=== PATIENT | male | born 1965 | race Caucasian/White ===

== ENCOUNTER 2023-03-06 11:12 | Outpatient (REF) | payer MEDICARE, MEDICAID, SELFPAY ==
[2023-03-06 13:10] LABS: MANUAL DIFF FLAG NO
[2023-03-06 13:34] LABS: Basophils Absolute Auto 0.1 X10*3/uL (0.0-0.2); Basophils Percent Auto 0.7 % (0-2); Eosinophils Absolute Auto 0.2 X10*3/uL (0.0-0.4); Eosinophils Percent Auto 1.8 % (0-4); Hematocrit 44.2 % (42.0-52.0); Hemoglobin 14.7 g/dl (14.0-18.0); Imm Gran Abs Auto 0.04 X10*3/uL (0.00-0.03); Imm Gran Pct Auto 0.4 % (0.0-0.4); Lymphocytes Absolute Auto 3.5 X10*3/uL (1.2-4.9); Lymphocytes Percent Auto 35.1 % (20-40); Mean Corpuscular HGB Conc 33.3 g/dl (31.0-36.0); Mean Corpuscular Hemoglobin 31.2 pg (27.0-33.0); Mean Corpuscular Volume 93.8 fL (80.0-98.0); Mean Platelet Volume 10.2 fL (9.4-12.4); Monocytes Absolute Auto 0.8 X10*3/uL (0.1-1.2); Monocytes Percent Auto 8.5 % (2-11); Neutrophils Absolute Auto 5.3 x10*3/uL (2.0-8.3); Neutrophils Percent Auto 53.5 % (45-73); Platelet Count 313 X10*3/uL (160-400); Red Blood Count 4.71 X10*6/uL (4.60-5.80); Red Cell Distribution Width 12.2 % (11.0-16.0); White Blood Count 9.9 X10*3/uL (4.8-10.8)
[2023-03-06 13:42] LABS: Estimated Average Glucose 103 mg/dL; Hemoglobin A1c % 5.2 % (<6.0)
[2023-03-06 14:04] LABS: Alanine Aminotransferase 20 U/L (0-40); Albumin Level 4.2 g/dL (3.5-5.0); Alkaline Phosphatase 83 U/L (39-117); Anion Gap 12 (12-20); Aspartate Amino Transferase 20 U/L (5-37); Bilirubin Direct 0.2 mg/dL (0.0-0.5); Bilirubin Total 0.5 mg/dL (0.0-1.0); Blood Urea Nitrogen 16 mg/dL (9-16); Carbon Dioxide 31 mmol/L (22-29); Chloride 100 mmol/L (96-108); Cholesterol 211 mg/dL (<200); Estimated Glomerular Filt Rate > 60; Glucose Random 103 mg/dL (60-115); HDL Cholesterol 42 mg/dL (>40); LDL Cholesterol Calculated 147 mg/dL (<100); Potassium 4.5 mmol/L (3.3-5.1); Sodium 138 mmol/L (135-145); Total Protein 7.2 g/dL (6.5-8.0); Triglycerides 113 mg/dL (<150)
[2023-03-06 14:21] LABS: TSH reflex Free T4 0.78 uIU/mL (0.32-4.0)
[2023-03-07 03:50] LABS: HIV AB/AG Nonreactive (Nonreactive); HIV Num 1 0.06 S/CO (0.00-0.99)
[2023-03-07 03:52] LABS: ~Hepatitis C Antibody Nonreactive (Nonreactive)
== END 2023-03-06 11:13 | disposition home or self-care (01) ==
LOC: HO.HHCL 11:12
PROVIDERS: Visit Provider Internal Medicine
DX: Z00.00 Encounter for general adult medical examination without abnormal findings (principal); Z11.4 Encounter for screening for human immunodeficiency virus [HIV]; I10 Essential (primary) hypertension; Z79.899 Other long term (current) drug therapy
CPT/HCPCS: 36415; 80048; 80061; 80076; 83036; 84443; 85025; 86803; 87389

== ENCOUNTER 2023-04-13 10:27 | Outpatient (AMB) | payer MEDICARE, MEDICAID, SELFPAY ==
--- NOTE | 2023-04-13 10:29 | A.OFFVIS_ITS ---
Intake Vital Signs 04/13/23 10:38 Height 5 ft 10 in Weight 202 lb 2 oz BMI 29.0 BP 154/93 H Blood Pressure Location Lt brachial Position Sitting Pulse 66 Intake Visit Reasons: ventral hernia Intake Note: Patient is seen in office for evaluation and treatment of a ventral hernia. 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 He has noted the lump for several years and is gradually increasing in size. He notes it mainly when getting out of bed or when having intercourse with his . He does not note the lump well on the standing position. He has heartburn but feels this may be related to reflux. He denies nausea, vomiting, diarrhea or constipation. He denies a previous history of abdominal surgeries. [facility] Surgical History History of arthroscopic knee surgery History of hand surgery History of neck surgery Family History Father Colon cancer Brother Colon cancer Social History Alcohol intake: never Patient Tobacco Use Status: Never used Tobacco Review of Systems Const All systems reviewed & are unremarkable except as noted in HPI and below GI Reports as per HPI Physical Exam Const General: no acute distress Nutritional Appearance: well nourished Orientation/consciousness: patient oriented x3 Limitations: no limitations Resp Effort & Inspection: normal respiratory effort, no audible wheezes, no cough and no respiratory distress GI Other: Patient examined in the standing position with Valsalva maneuvers. No palpable ventral hernias identified. Patient was then placed in a supine position and made to perform a sit-up. Diastasis recti was identified. This was reduced when recruiting the oblique muscles at the same time. Again no ventral hernia identified. Palpation (GI): Soft to palpation, nontender, no guarding and not rigid Skin General skin exam: no rashes or lesions noted Neuro General: patient oriented x3 Extrem General: Yes no clubbing, cyanosis or edema Assessment & Plan Assessment & Plan (1) Diastasis recti: Code(s): M62.08 - Separation of muscle (nontraumatic), other site Plan 57-year-old male patient presenting for evaluation of a ventral hernia. On examination the patient does have a large diastasis recti but no hernia was identified within this protruding portion. No surgical intervention is required for the diastasis recti. I recommended performing core exercises to strengthen the oblique muscles which should help to reduce the diastasis. He should follow up as needed. Coding Level of Care Code New Pt Level 4 (57045) Diagnoses Diastasis recti M62.08
[2023-04-13 10:38] VITALS: BP 154/93; PULSE 66; BMI 29.0
== END 2023-04-13 10:41 | disposition home or self-care (01) ==
PROVIDERS: PCP Internal Medicine; Referring Provider Internal Medicine; Visit Provider Surgery
DX: M62.08 Separation of muscle (nontraumatic), other site (principal)
CPT/HCPCS: 99203

== ENCOUNTER → 2023-04-13 10:27 | Outpatient (BNVA) | payer MEDICARE, SELFPAY | PROVIDERS: PCP Internal Medicine; Referring Provider Internal Medicine; Visit Provider Surgery ==

== ENCOUNTER 2024-09-17 12:59 | Outpatient (REF) | payer MEDICARE, MEDICAID, SELFPAY ==
--- NOTE | ~2024-09-17 | XR_ITS ---
EXAMINATION: XR CHEST CLINICAL INFORMATION: cough x one week with decreased BS COMPARISON: None available. TECHNIQUE: 2 views of the chest were obtained. FINDINGS: The lungs are well-expanded and clear acute process. The heart size and pulmonary vascularity is normal. There are old healed fractures left posterior fifth, sixth and seventh ribs. The lower cervical spine fusion with hardware. XR/XR chest 2V IMPRESSION: Unremarkable chest examination. Electronically signed by: Jose Antonio Garcia MD 09/17/2024 01:18 PM EST
--- OUTSIDE RECORDS SUMMARY | 2024-09-17 15:21 | XMS_ITS ---
Author Organization [facility] Address [address] [place] [phone] Care Team Providers Care Mortuary Beautician Name Role Phone Ebenezer Lawrence, Marcy Primary Care Provider Kodi Galan Jr [phone] REASON FOR VISIT abnormal findings in stool Encounters Encounter Location Date Provider Diagnosis [facility] [address] [place] [phone] 09/11/2023 Kodi Smith Jr Plan Of Treatment No Information Progress Notes * RHIANNON CHAVE[birth year]DOB:[birth year] (59 yo M)Acc No.[id number]:09/11/2023 COLON WITH MAC Patient:?RHIANNON CHAVEZ Provider:?Kodi Smith MD :1965???Age:58 Y???Sex:Male Ceasar e:09/11/2023 Address:[address] [place] [address], [place], [place] Pcp:Marcy Sol M.D. Subjective: * Chief Complaints: * ???1. Abnormal findings in s tool. * Medical History:? Objective: * Vitals:? Assessment: Plan: * Treatment: * * The named appointment provid er may or may not be the originator of this progress note, and it is not deemed complete until electronically signed by the appointment provider. Sign off status: Pending * Provider:?Kodi Smith MD Date:?0 09/11/2023 Generated for Scott moreira/Almas/eTransmitting on:?09/17/2024 03:21 PM EST
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
--- OUTSIDE RECORDS SUMMARY | 2024-09-17 15:21 | XMS_ITS ---
Author Organization [facility] Address [address] [place] [phone] Care Team Providers Care Rubber Tile Floor Layer Name Role Phone Marcy Sol M.D. Primary Care Provider Kodi Galan Jr [phone] REASON FOR VISIT [facility] is not active Encounters Encounter Location Date Provider Diagnosis [facility] [address] [place] [address] 09/10/2023 Kodi Smith Jr Plan Of Treatment No Information Progress Notes * RHIANNON CHAVEZDOB:[birth year] (58 yo M)Acc No.[id number]:09/10/2023 Patient:?RHIANNON CHAVEZ :1965???Age:58 Y???Sex:Male Address:[address], [place], [address] * true * Date:? Generated for Tahiri lillie/Almas/eTransmitting on:?09/17/2024 03:21 PM EST
--- OUTSIDE RECORDS SUMMARY | 2024-09-17 15:22 | XMS_ITS | Encounter Summary ---
Author Organization [employer] Address [address] [facility] 7t [place] [address] Care Team Providers Care Barrel Charrer Helper Name Role Phone Marcy Pat MD Primary Care Provide r Reason for Visit * Reason Onset Date Comments Results 09/17/2024 Encounter Details Date Type Department Care Team ([facility] st Contact Info) Description 09/17/2024 Telephone [facility] [address] [place], [place] [phone] Carlota Raza DO [address] [place], [place] [phone] Results Social History Tobacco Use Types Packs/Day Years Used Date Smoking Tobacco: Every Day Cigarettes Passive Smoke Exposure: Current Smokeless Tobacco: Never Depression Answer Date Recorded Patient Health Questionnaire-9 Score 3 03/06/2023 Housing Stability Answer Date Recorded What is your housing situation today? I have alex cabrera 05/18/[address] you li ve. Do you have problems with any of the following? None of the above 05/18/2023 Food Insecurity Answer Date Recorded Within the past 12 months, y ou worried that your food would run out before you got money to buy more: Never True 05/18/2023 Within the past 12 months,th e food you bought just didn't last and you didn't have enough money to get more: Never True 09/2022 Transportation Answer Date Recorded In the past 12 months, has l ack of transportation kept you from medical appts, meetings, work or from getting things needed for daily living? No 05/18/2023 Utilities Answer Date Recorded In the past 12 months, has t he electric, gas, oil or water company threatened to shut off services in your home? No 05/18/2023 Depression Answer Date Recorded Patient Health Questionnaire-2 Score 1 03/06/2023 Sex and Gender Information Value Date Recorded Sex Assigned at Male 05/15/2022 10:22 AM EDT Legal Sex Male 10:22 AM EDT Gender Identity Choose not to disclose 10:22 AM EDT Sexual Orientation Choose not to disclose 2021 10:22 AM EDT documented as of this encounter Miscellaneous Notes * Telephone Encounter - Tita Schreiber RN - 09/17/2024 2:55 PM EST TC placed to patient [phone] inform of below message. Patient verbalized understanding and did not have any further questions/concerns. Patient to f/u PRN. * Telephone Encounter - Carlota Raza DO - 09/17/2024 2:32 PM EST Please advise pt that his CXR showed clear lungs with no evidence of PNA. Thank you. documented in this encounter Plan of Treatment Upcoming Encounters Date Type Department Care Team (Late st Contact Info) Description 11/17/2024 1:30 PM EDT Office Visit [facility] [address] [place] [address] Marcy Pat MD [address] [place] [address] documented as of this encounter Visit Diagnoses Not on filedocumented in this encounter Additional Health Concerns Assessment Noted Time PHQ-9 Depression Total Score: 3 03/06/20 23 10:37 AM EDT documented as of this encounter Care Teams Barrel Charrer Helper Relationship Specialty Start Date End Date Marcy Pat MD [address] [place] [phone] PCP - General Internal Medicine 03/06/23 documented as of this encounter
--- OUTSIDE RECORDS SUMMARY | 2024-09-17 15:22 | XMS_ITS | Encounter Summary ---
Author Organization [employer] Address [address] [facility] 7t [place] [address] Care Team Providers Care Pharmacy Scheduler Name Role Phone Marcy Pat MD Primary Care Provide r Encounter Details Date Type Department Care Team (Late st Contact Info) Description 09/17/2024 11:30 AM EST Office Visit [facility] [address] [place] [address] Carlota Raza DO [address] [place], [place] [phone] COPD with acute exacerbation (CMS/HCC) (Primary Dx); Tobacco dependence; Chronic bronchitis, unspecified chronic bronchitis type (CMS/HCC) Social History Tobacco Use Types Packs/Day Years Used Date Smoking Tobacco: Every Day Cigarettes Passive Smoke Exposure: Current Smokeless Tobacco: Never Tobacco Cessation:Ready to Q uit: Not Asked; Counseling Given: Not Answered Depression Answer Date Recorded Patient Health Questionnaire-9 [...] AM EDT documented as of this encounter Last Filed Vital Signs Vital Sign Reading Time Taken Comments Blood Pressure 118/70 09/17/2024 12:36 PM EST Pulse 70 09/17/2024 12:36 PM EST Temperature 36.2 ??C (97.1 ??F) 09/17/2024 12:[address] Respiratory Rate 21 09/17/2024 12:36 PM EST Oxygen Saturation 94% 09/17/2024 12:36 PM EST Inhaled Oxygen Concentration - - Weight 88.9 kg (196 lb) 09/17/2024 12:36 PM EST Height 177.8 cm (5' 10 ) 09/17/2024 12:36 PM EST Body Mass Index 28.12 09/17/2024 12:36 PM EST documented in this encounter Plan of Treatment Upcoming Encounters Date Type Department Care Team (Late st Contact Info) Description 11/17/2024 1:30 PM EDT Office Visit [facility] [address] [place] [address] Marcy Pat MD [address] [place] [address] documented as of this encounter Procedures Procedure Name Priority Date/Time Associated Diagnosis Comments XR CHEST 2 VIEWS STAT 09/17/2024 1:00 PM EST COPD with acute exacerbation (CMS/HCC) POCT INFLUENZA A (ID NOW RAPID MOLECULAR) Routine 09/17/2024 12:44 PM EST COPD with acute exacerbation (CMS/HCC) POCT INFLUENZA B (ID NOW RAPID MOLECULAR) Routine 09/17/2024 12:43 PM EST COPD with acute exacerbation (CMS/HCC) POC NICHOLS ID NOW STREP A Routine 09/17/2024 12:43 PM EST COPD with acute exacerbation (CMS/HCC) POCT RAPID COVID ANTIGEN Routine 09/17/2024 12:42 PM EST COPD with acute exacerbation (CMS/HCC) documented in this encounter Results * XR Chest 2 Views (09/17/2024 1:00 PM EST) Anatomical Region Laterality Modality Chest Radiographic Bethanie ging 09/17/2024 1:00 PM EST Narrative 09/17/2024 1:21 PM EST ?[facility] ?[address] ?[place] [address] ?XRay Report ? Signed ? Patient: Claire,Yan E ?MR#: [id number] ?? [id number] ? : 1965 ?Acct:[id number] ? Age/Sex: 59 / M ?ADM Date: 09/17/24 ? Loc: HO.HHCX ? Attending Dr: Carlota Raza DO ? Ordering Physician: Carlota Raza DO ?? Date of Service: 09/17/24 ?? Procedure(s): XR chest 2V ?? Accession Number(s): [id number] ? cc: Carlota Raza DO ? EXAMINATION: ?? XR CHEST ? CLINICAL INFORMATION: ?? cough x one week with decreased BS ? COMPARISON: ?? None available. ? TECHNIQUE: ?? 2 views of the chest were obtained. ? FINDINGS: ?? The lungs are well-expanded and clear acute process. The heart size and ?? pulmonary vascularity is normal. There are old healed fractures left ?? posterior fifth, sixth and seventh ribs. The lower cervical spine ?? fusion with hardware. ? XR/XR chest 2V ?? IMPRESSION: ?? Unremarkable chest examination. ? Electronically signed by: ??Jose Antonio Garcia MD ??09/17/2024 01:18 PM EST RP ? Dictated By: ?Radha,Jose Antonio S MD ? Signed By: ?<Electronically signed by Jose Antonio Garcia MD in OV> ?09/17/24 1318 ? DD/ 1300 ? TD/TT: 09/17/24 1310 ? [place] Inspector: MSM ? Procedure Note Stevenson, Image - 09/17/2024 [facility] [address] [place] [address] XRay Report Signed Patient: Yan Rangel EMR#: [id number] : 1965Acct:[id number] Age/Sex: 59 / MADM Date: 09/17/24 Loc: HO.HHCX Attending Dr: Carlota Raza DO Ordering Physician: Carlota Raza DO Date of Service: 09/17/24 Procedure(s): XR chest 2V Accession Number(s): [id number] cc: Carlota Raza DO EXAMINATION: XR CHEST CLINICAL INFORMATION: cough x one week with decreased BS COMPARISON: None available. TECHNIQUE: 2 views of the chest were obtained. FINDINGS: The lungs are well-expanded and clear acute process. The heart size and pulmonary vascularity is normal. There are old healed fractures left posterior fifth, sixth and seventh ribs. The lower cervical spine fusion with hardware. XR/XR chest 2V IMPRESSION: Unremarkable chest examination. Electronically signed by: Jose Antonio Garcia MD 09/17/2024 01:18 PM EST Dictated By: Jose Antonio Garcia MD Signed By: <Electronically signed by Jose Antonio Garcia MD in OV> 09/17/24 1318 DD/ 1300 TD/TT: 09/17/24 1310 [place] Inspector: MSM Carlota Raza DO IMG XR PROCEDURES Edited Res ult - Final * POCT Rapid Influenza A NICHOLS ID NOW (09/17/2024 12:44 PM EST) Influenza A Negative Negative, Indeterminate [facility] QC Media Lot # [id number] [facility] Lot# Expiration Date [facility] Swab 09/17/2024 12:4 4 PM EST Carlota Raza DO POINT OF CARE TEST ENTER/KYLAH T ORDERABLES Final Result Performing Organization Address [facility] Co de Phone Number [facility] [address] [place] [phone] * POCT Rapid Strep A NICHOLS ID NOW (09/17/2024 12:43 PM EST) Rapid Strep A Screen Negative Negative, None Detected QC Media Lot # [id number] Lot# Expiration Date Swab 09/17/2024 12:4 3 PM EST Carlota Raza DO POINT OF CARE TEST ENTER/KYLAH T ORDERABLES Final Result * POCT Rapid Influenza B NICHOLS ID NOW (09/17/2024 12:43 PM EST) Influenza B Negative Negative, Indeterminate [facility] QC Media Lot # [id number] [facility] Lot# Expiration Date [facility] Swab 09/17/2024 12:4 3 PM EST Carlota Raza DO POINT OF CARE TEST ENTER/KYLAH T ORDERABLES Final Result Performing Organization Address [facility] Co de Phone Number [facility] [address] [place] [phone] * POCT Rapid Covid-19 BinaxNOW (09/17/2024 12:42 PM EST) Rapid COVID Ag Negative QC Media Lot # [id number] Lot# Expiration Date 026 Swab 09/17/2024 12:4 2 PM EST Carlota Raza DO POINT OF CARE TEST ENTER/KYLAH T ORDERABLES Final Result documented in this encounter Visit Diagnoses Diagnosis COPD with acute exacerbation (CMS/HCC)- Primary Tobacco dependence Tobacco use disorder Chronic bronchitis, unspecified chronic bronchitis type (CMS/HCC) documented in this encounter Additional Health Concerns Assessment Noted Time PHQ-9 Depression Total Score: 3 03/06/20 23 10:37 AM EDT documented as of this encounter Care Teams Pharmacy Scheduler Relationship Specialty Start Date End Date Marcy Pat MD [address] [place] [phone] PCP - General Internal Medicine 03/06/23 documented as of this encounter
--- OUTSIDE RECORDS SUMMARY | 2024-09-17 15:22 | XMS_ITS | Clinical Summary ---
Author Organization [employer] Address [address] [facility] [address] [place] [address] Care Team Providers Care Environmental Engineering Aide Name Role Phone Marcy Pat MD Primary Care Provide r Allergies Active Allergy Reactions Criticality Noted Date Comments Tramadol 09/17/2024 Other Reaction(s): vomiting Medications Diclofenac Sodium 1 % gelIndications:L ateral epicondylitis of right elbow APPLY 2 grams TOPICALLY IF NEEDED IN THE MORNING AND AT BEDTIME (APPLY TWICE A DAY IF NEEDED). 100 g 1 08/01/19 24 Active lisinopril-hydro CHLOROthiazide 20-25 MG tabletIndication s:Primary hypertension TAKE 1 TABLET BY MOUTH EVERY DAY IN THE MORNING 90 tablet 3 07/30/19 25 Active atorvastatin (Lipitor) 40 MG tabletIndication s:Primary hypertension TAKE 1 TABLET BY MOUTH EVERY DAY IN THE MORNING 90 tablet 1 07/30/19 25 Active predniSONE (Deltasone) 20 MG tablet Take 3 tablets (60 mg) by mouth Once per day for 5 days. 15 tablet 09/18/19 25 2024 Active albuterol (Ventolin HFA) 108 (90 Base) MCG/ACT inhalerIndicatio ns:Chronic bronchitis, unspecified chronic bronchitis type (CMS/HCC) Inhale 2 puffs every 4 (four) hours if needed for wheezing or shortness of breath. INHALE 2 PUFFS EVERY 6 HOURS IF NEEDED FOR WHEEZING. 18 g 1 09/18/19 25 Active loratadine (Claritin) 10 MG tablet Take 1 tablet (10 mg) by mouth Once per day. 30 tablet 3 09/18/19 25 2025 Active fluticasone (Flonase) 50 MCG/ACT nasal spray Administer 2 sprays into each nostril Once per day. Shake gently. Before first use, prime pump. After use, clean tip and replace cap. 16 g 3 09/18/19 25 2025 Active benzonatate (Tessalon Perles) 100 MG capsule Take 1 capsule (100 mg) by mouth if needed in the morning, at noon, and at bedtime for cough for up to 10 days. Do not crush or chew. 30 capsule 09/18/19 25 2024 Active guaiFENesin (Mucinex) 600 MG 12 hr tablet Take 2 tablets (1,200 mg) by mouth if needed in the morning and at bedtime for congestion or cough. Do not crush, chew, or split. 30 tablet 09/18/19 25 2025 Active albuterol (Ventolin HFA) 108 (90 Base) MCG/ACT inhalerIndicatio ns:Chronic bronchitis, unspecified chronic bronchitis type (CMS/HCC) INHALE 2 PUFFS EVERY 6 HOURS IF NEEDED FOR WHEEZING. 18 g 3 10/30/19 24 2024 Discontinued(R eorder (will not trigger notification to Pharmacy)) Active Problems Problem Noted Date Diagnosed Date Uncomplicated opioid dependence 10/30/2023 Assessment & Plan (10/31/2023 2:04 PM EDT): Continue on methadone clinic, doing well Chronic bronchitis 07/02/2023 Assessment & Plan (10/31/2023 1:58 PM EDT): Smoking cessation counseling done Patient was refer to pulmonology he had insurance issue, it will be fix and he will schedule his appointment Lateral epicondylitis of right elbow 07/02/2023 Colon cancer screening 07/02/2023 Primary hypertension 03/06/2023 Assessment & Plan (10/31/2023 2:05 PM EDT): Patient did not took his medication today, advise not to miss any dose of his medication - Aerobic exercise to reduce BP. Initial goal of 30 min walk 3-5x/week. Increase as tolerated. - low-sodium diet (goal: <2g/day) and heart healthy diet such as DASH to reduce BP and prevent ASCVD. - Home BP monitoring 1-2 x day with goal of <140/90. - Seek immediate medical attention for chest pain, palpitations, SOB, syncope, or sudden changes in mental status. - Do not change or discontinue current prescriptions without first consulting health care provider Assessment & Plan (07/02/2023 4:03 PM EST): Maintenance: BMP: up to date Lipid Panel: up to date ASCVD Risk:I started him on atorvastatin 40mg daily - Aerobic exercise to reduce BP. Initial goal of 30 min walk 3-5x/week. Increase as tolerated. - low-sodium diet (goal: <2g/day) and heart healthy diet such as DASH to reduce BP and prevent ASCVD. - Home BP monitoring 1-2 x day with goal of <140/90. - Seek immediate medical attention for chest pain, palpitations, SOB, syncope, or sudden changes in mental status. - Do not change or discontinue current prescriptions without first consulting health care provider Assessment & Plan (03/06/2023 1:40 PM EDT): Maintenance: BMP: ordered Lipid Panel: ordered ASCVD Risk: Calculate pending updated labs - Aerobic exercise to reduce BP. Initial goal of 30 min walk 3-5x/week. Increase as tolerated. - low-sodium diet (goal: <2g/day) and heart healthy diet such as DASH to reduce BP and prevent ASCVD. - Home BP monitoring 1-2 x day with goal of <140/90. - Seek immediate medical attention for chest pain, palpitations, SOB, syncope, or sudden changes in mental status. - Do not change or discontinue current prescriptions without first consulting health care provider Anxiety with depression 03/06/2023 Assessment & Plan (10/31/2023 2:04 PM EDT): Patient stable continue with methadone clinic counselor Assessment & Plan (03/06/2023 1:43 PM EDT): Counseling done today Patient will follow with counselor No necessity for medications for now Health care maintenance 03/06/2023 Ventral hernia without obstruction or gangrene 0 03/06/2023 Smoker 03/06/2023 Assessment & Plan (10/31/2023 2:04 PM EDT): Patient is not ready to quit he is trying to cut down, he declines other interventions Assessment & Plan (03/06/2023 1:41 PM EDT): Patient chemical dependency counselor about quit smoking today, further conversation about this and lung cancer screening to be address on next visit Encounters Date Type Department Care Team Description 09/17/2024 11:30 AM EST Office Visit [facility] [address] [place] [phone] Carlota Raza DO COPD with acute exacerbation (CMS/HCC) (Primary Dx); Tobacco dependence; Chronic bronchitis, unspecified chronic bronchitis type (CMS/HCC) 09/17/[address] [address] Carlota Raza DO Results 09/17/2024 Travel 09/16/[address] [address] Marcy Pat MD Nurse Triage 07/29/2024 Refill [facility] [address] [place] [address] Marcy Pat MD Primary hypertension from Last 3 Months Immunizations Name Administration Dates Next Due Influenza injectable quadriv alent IIV4 with preservative 05/19/2015 Influenza injectable quadriv alent preservative free 07/02/2023 Influenza, IIV3, injectable 04/23/2014, 3 Influenza, Split (incl. theo fied surface antigen) 04/10/2012 Pneumococcal Conjugate PCV 20 10/30/2023 TD (adult), 2 Lf tetanus tox oid, preservative free, adsorbed 07/16/2003 Tdap 01/10/2017,05/19/2015,06/06/2013 Social History Tobacco Use Types Packs/Day Years [...] not to disclose 2021 10:22 AM EDT Last Filed Vital Signs Vital Sign Reading [...] Mass Index 28.12 09/17/2024 12:36 PM EST Plan of Treatment Upcoming Encounters Date Type Department Care Team (Late st Contact Info) Description 11/17/2024 1:30 PM EDT Office Visit [facility] [address] [place] [address] Marcy Pat MD [address] [place] [address] Health Maintenance Due Date Last Done Comments CT Colonography 1965 Colonoscopy 1965 FIT 1965 FOBT 1965 Sigmoidoscopy 1965 Alcohol/Substance Use Screening 1977 Hepatitis A Vaccines (1 of 2 - Risk 2-dose series) 1984 Hepatitis B Vaccines (1 of 3 - 19+ 3-dose series) 1984 Zoster Vaccines (1 of 2) 2015 Depression Screening 03/06/2024 03/06/2023, 03/06/20 23 COVID-19 Vaccine ( - season) 2024 09/25/2020, 09/02/2020 Influenza Vaccine (#1) 2024 , 05/19/2015, 04/23/2014, Additional history exists SDOH Screening 10/17/2024 10/18/2023 Tobacco Screening 09/17/2025 09/17/2024 Colorectal Cancer Screening 07/19/2026 FIT DNA/Cologuard 07/19/2026 07/19/2023 DTaP/Tdap/Td Vaccines (4 - Td or Tdap) 01/10/2027 01/10/2017, 05/19/2015, 06/06/2013, Additional history exists Lipid Panel 03/06/2028 03/06/2023 RSV Patients and Patients Aged 60 years or older (1 - 1-dose 75+ series) 2040 HIV Screening Completed 03/06/2023 Hepatitis C Screening Completed 03/06/2023 Pneumococcal Vaccine: 50+ Years Completed 10/30/2023 HIB Vaccines Aged Out No longer eligi ble based on patient's age to complete this topic HPV Vaccines Aged Out No longer eligi ble based on patient's age to complete this topic IPV Vaccines Aged Out No longer eligi ble based on patient's age to complete this topic Meningococcal Vaccine Aged Out No sheng cooper eligible based on patient's age to complete this topic RSV under 20 months Aged Out No longe r eligible based on patient's age to complete this topic Rotavirus Vaccines Aged Out No longer eligible based on patient's age to complete this topic Procedures Procedure Name Priority Date/Time Associated Diagnosis [...] PM EST COPD with acute exacerbation (CMS/HCC) LAB COLOGUARD?? COLON CANCER SCREEN Routine 07/19/2023 9:45 PM EST Colon cancer screening HEPATITIS C ANTIBODY REFLEX Routine 03/06/2023 11:20 AM EDT HIV ANTIBODY/ANTIGEN ([place] [facility]) Routine 03/06/2023 11:20 AM EDT LIPID PANEL, STANDARD Routine 03/06/2023 11:20 AM EDT Primary hypertension from Last 3 Months or Most Recently Relevant to Health Maintenance Results * XR Chest 2 Views (09/17/2024 1:00 PM EST) Anatomical Region Laterality Modality Chest Radiographic Bethanie ging 09/17/2024 1:00 PM EST Narrative 09/17/2024 1:21 PM EST ?[facility] ?[address] ?[place] [address] ?XRay Report ? Signed ? Patient: Claire,Yan E ?MR#: [id number] ?? [id number] ? : 1965 ?Acct:[id number] ? Age/Sex: 59 / M ?ADM Date: 03/05/25 ? Loc: HO.HHCX ? Attending Dr: Carlota Raza DO ? Ordering Physician: Carlota Raza DO ?? Date of Service: 09/17/24 ?? Procedure(s): XR chest 2V ?? Accession Number(s): [id number] ? cc: Carlota Raza DO ? EXAMINATION: [...] 01:18 PM EST RP ? Dictated By: ?Jose Antonio Garcia MD ? Signed By: ?<Electronically signed by Jose Antonio Garcia MD in OV> ?09/17/24 1318 ? DD/ 1300 ? TD/TT: 09/17/24 1310 ? Feeder Associate: MSM ? Procedure Note Lornestellarobertnalini, Image - 09/17/[address] [address] XRay Report Signed Patient: Yan Rangel EMR#: [id number] : 1965Acct:[id number] Age/Sex: 59 / MADM Date: 09/17/24 Loc: HO.HHCX Attending Dr: Carlota Raza DO Ordering Physician: Carlota Raza DO Date of Service: 09/17/24 Procedure(s): XR chest 2V Accession Number(s): [id number] cc: Carlota Raza DO EXAMINATION: XR CHEST [...] Antonio Garcia MD 09/17/2024 01:18 PM EST RP Dictated By: Jose Antonio Garcia MD Signed By: <Electronically signed by Jose Antonio Garcia MD in OV> 09/17/24 1318 DD/ 1300 TD/TT: 09/17/24 1310 Feeder Associate: STEVEN Carlota Raza DO IMG XR PROCEDURES Edited Res ult - Final * POCT Rapid Influenza A NICHOLS ID NOW (09/17/2024 12:44 PM EST) Influenza A Negative Negative, Indeterminate [facility] QC Media Lot # [id number] [facility] Lot# Expiration Date [facility] Swab 09/17/2024 12:4 4 PM EST Carlota Raza DO POINT OF CARE TEST ENTER/KYLAH T ORDERABLES Final Result Performing Organization Address [facility] Co de Phone Number [facility] [address] [place] [phone] * POCT Rapid Influenza B NICHOLS ID NOW (09/17/2024 12:43 PM EST) Influenza B Negative Negative, Indeterminate [facility] QC Media Lot # [id number] [facility] Lot# Expiration Date [facility] Swab 09/17/2024 12:4 3 PM EST Carlota Raza DO POINT OF CARE TEST ENTER/KYLAH T ORDERABLES Final Result Performing Organization Address City/[facility] Co de Phone Number [facility] [address] [place] [phone] * POCT Rapid Strep A NICHOLS ID NOW (09/17/2024 12:43 PM EST) [facility] Rapid Strep A Screen Negative Negative, None Detected QC Media Lot # [id number] Lot# Expiration Date 10,026 Swab 09/17/2024 12:4 3 PM EST Carlota Ry DO POINT OF CARE TEST ENTER/KYLAH T ORDERABLES Final Result * POCT Rapid Covid-19 BinaxNOW (09/17/2024 12:42 PM EST) [facility] Rapid COVID Ag Negative QC Media Lot # [id number] Lot# Expiration Date ,026 Swab 09/17/2024 12:4 2 PM EST Carlota Raza DO POINT OF CARE TEST ENTER/KYLAH T ORDERABLES Final Result * (ABNORMAL) Cologuard?? colon cancer screening (07/19/2023 9:45 PM EST) [facility] Cologuard Result Positive( A) Negative 08/01/2023 10:04 AM EST Publish[facility] (CLIA #:[id number]) Comment: POSITIVE TEST RESULT. A positive Cologuard result should be followed with a colonoscopy or visual examination of the colon. The normal value (reference range) for this assay is negative. TEST DESCRIPTION: Composite algorithmic analysis of stool DNA-biomarkers with hemoglobin immunoassay. ?? Quantitative values of individual biomarkers are not reportable and are not associated with individual biomarker result reference ranges. Cologuard is intended for colorectal cancer screening of adults of either sex, 45 years or older, who are at average-risk for colorectal cancer (CRC). Cologuard has been approved for use by the U.S. FDA. The performance of Cologuard was established in a cross sectional study of average-risk adults aged 50-84. Cologuard performance in patients ages 45 to 49 years was estimated by sub-group analysis of near-age groups. Colonoscopies performed for a positive result may find as the most clinically significant lesion: colorectal cancer [4.0%], advanced adenoma (including sessile serrated polyps greater than or equal to 1cm diameter) [20%] or non- advanced adenoma [31%]; or no colorectal neoplasia [45%]. These estimates are derived from a prospective cross-sectional screening study of 10,000 individuals at average risk for colorectal cancer who were screened with both Cologuard and colonoscopy. (Rosalina Rodriguez al, N Engl J Med 2014;370(14):0637-3725.) Cologuard may produce a false negative or false positive result (no colorectal cancer or precancerous polyp present at colonoscopy follow up). A negative Cologuard test result does not guarantee the absence of CRC or advanced adenoma (pre-cancer). The current Cologuard screening interval is every 3 years. ([place] [employer] and U.S. Multi-Society Task Force). Cologuard performance data in a 10,000 patient pivotal study using colonoscopy as the reference method can be accessed at the following location: www.igadget.asia/results. Additional description of the Cologuard test process, warnings and precautions can be found at www.Asset Mappingoguard.com. Stool specimen (specimen) 07/19/2023 9:45 PM EST 07/23/2023 11:07 AM EST Marcy Lake MD LAB MOLECULAR DIAGNOS TICS ORDERABLES Final Result Publish2 (CLIA #:[id number]) [address] [place] [address], * Hepatitis C Antibody Reflex (03/06/2023 11:20 AM EDT) Hepatitis C Antibody Nonreactive Nonreactive [facility] Comment:Antibodies to HCV no t detected; does not exclude early acuteHCV infection. 03/06/2023 11:2 0 AM EDT 03/06/2023 1:07 PM EDT us Marcy Lake MD LAB BLOOD ORDERABLES Final Result Performing Organization Address [facility]/ZIP Co de Phone Number [facility] [address] [place] [phone] * HIV Ab/Ag ([facility]) (03/06/2023 11:20 AM EDT) HIV AB/AG Nonreactive Nonreactive [facility] Comment:HIV-1 p24 Ag and/or HIV-1/HIV-2 Ab not detected.A test result that is nonreactive does not exclude thepossibility of exposure to or infection with HIV-1 and/orHIV-2. Nonreactive results in this assay for individualswith prior exposure to HIV-1 and/or HIV-2 may be due toantigen and antibody levels that are below the limit ofdetection of this assay.The [employer] Track Worker HIV Ag/Ab Combo assay result andsupplemental assay results should be interpreted inconjunction with the patient's clinical presentation,history and other laboratory results. If the results areinconsistent with clinical evidence, additional testing issuggested to confirm the result. 03/06/2023 11:2 0 AM EDT 03/06/2023 1:07 PM EDT us Marcy Lake MD LAB BLOOD ORDERABLES Final Result Performing Organization Address [facility]/ZIP Co de Phone Number [facility] [address] [place] [phone] * (ABNORMAL) Lipid Panel, Standard (03/06/2023 11:20 AM EDT) Triglycerides 113 <150 mg/dL [facility] Comment:Desirable Triglyceri de: less than 150 mg/dLBorderline High Triglyceride 150-199 mg/dLHigh Triglyceride: 200-499 mg/dLVery High Triglyceride: greater than or equal to 5OO mg/dL Cholesterol 211(H) <200 mg/dL [facility] Comment:Desirable Cholestero l: less than 200 mg/dLBorderline High Cholesterol: 200-239 mg/dLHigh Cholesterol: greater than 239 mg/dL LDL Cholesterol Calculated 147(H) <100 mg/dL [facility] Comment:Desirable LDL: less than 100 mg/dLNear Optimal/Above Optimal LDL: 110- 129 mg/dLBorderline High LDL: 130-159 mg/dLHigh LDL: 160-189 mg/dLVery High LDL: greater than or equal to 190 mg/dL HDL Cholesterol 42 >40 mg/dL [facility] Comment:Desirable HDL: great er than 40 mg/dL Note: This HDL assay may give artificially low results in patients with liver disease. Blood Venous blood specimen / Unknown 03/06/2023 11:20 AM EDT 03/06/2023 1:07 PM EDT Marcy Lake MD LAB BLOOD ORDERABLES Final Result [facility] [address] [place] [phone] from Last 3 Months or Most Recently Relevant to Health Maintenance [place] [address] [place] [address] [place] [phone] Care Teams Environmental Engineering Aide Relationship Specialty Start Date End Date Marcy Pat MD [address] [place] [phone] PCP - General Internal Medicine 03/06/23
--- OUTSIDE RECORDS SUMMARY | 2024-09-17 15:22 | XMS_ITS | Encounter Summary ---
Author Organization [employer] Address [address] [place] [address] Care Team Providers Care Brush Loader And Handle Attacher Name Role Phone Marcy Pat MD Primary Care Provide r Encounter Details Date Type Department Care Team (Latest Contact Info) Description 09/17/2024 Travel Social History Tobacco Use Types Packs/Day Years [...] AM EDT documented as of this encounter Plan of Treatment Upcoming Encounters Date Type Department Care Team (Late st Contact Info) Description 11/17/2024 1:30 PM EDT Office Visit [facility] [address] [place] [address] Marcy Pat MD [address] [place] [address] documented as of this encounter Visit Diagnoses Not on filedocumented in this encounter Additional Health Concerns Assessment Noted Time PHQ-9 Depression Total Score: 3 03/06/20 23 10:37 AM EDT documented as of this encounter Care Teams Brush Loader And Handle Attacher Relationship Specialty Start Date End Date Marcy Pat MD [address] [place] [address] PCP - General Internal Medicine 03/06/23 documented as of this encounter
--- OUTSIDE RECORDS SUMMARY | 2024-09-17 15:22 | XMS_ITS ---
Author Organization [facility] Address [address] [place] [phone] Care Team Providers Care Marine Mammal Trainer Name Role Phone Ebenezer Lawrence, Marcy Primary Care Provider Kodi Galan Jr REASON FOR VISIT abnormal findings in stomach Encounters Encounter Location Date Provider Diagnosis [facility] Outpatient [address] [place] [phone] 10/09/2023 Kodi Smith Jr Plan Of Treatment No Information Progress Notes * RHIANNON CHAVE[birth year]DOB:[birth year] (59 yo M)Acc No.[id number]:10/09/2023 COLON WITH MAC Patient:?RHIANNON CHAVEZ Provider:?Kodi Smith MD :1965???Age:58 Y???Sex:Male Ceasar e:10/09/2023 Address:[address] [place] [address], [place], [place] Pcp:Marcy Sol M.D. Subjective: * Chief Complaints: * ???1. Abnormal findings in s tomach. * Medical History:? Objective: * Vitals:? Assessment: Plan: * Treatment: * * The named appointment provid er may or may not be the originator of this progress note, and it is not deemed complete until electronically signed by the appointment provider. Sign off status: Pending * Provider:?Kodi Smith MD Date:?0 10/09/2023 Generated for Scott moreira/Almas/eTransmitting on:?09/17/2024 03:22 PM EST
--- OUTSIDE RECORDS SUMMARY | 2024-09-17 15:22 | XMS_ITS | Encounter Summary ---
Author Organization [employer] Address [address] [facility] [address] [place] [address] Care Team Providers Care Time Clock Mechanic Name Role Phone Marcy Pat MD Primary Care Provide r Reason for Visit * Reason Onset Date Comments Nurse Triage 09/16/2024 Encounter Details Date Type Department Care Team ([facility] st Contact Info) Description 09/16/2024 Telephone [facility] [address] [place], [place] [phone] Marcy Pat MD [address] [place], [place] [phone] Nurse Triage Social History Tobacco Use Types Packs/Day Years Used Date Smoking Tobacco: Every Day Cigarettes Passive Smoke Exposure: Current Smokeless Tobacco: Never Depression Answer Date Recorded Patient Health Questionnaire-9 Score 3 03/06/2023 Housing Stability Answer Date Recorded What is your housing situation today? I have alexpretty cabrera 05/18/[address] you [...] t he electric, gas, oil or water luma-id threatened to shut off services in your [...] encounter Miscellaneous Notes * Telephone Encounter - Maria Teresa Diez RN - 09/16/2024 1:38 PM EST Called pt. He states that he has had a flu x 2 weeks ago and it got better. Than pt. Came down witha head cold x 6 days. Pt. Has no fever. Stuffy nose, productive cough- thick white phlegm. Pt. Wants lungs checked. Pt states he hs had wheezing but he has been using inhalers which has given him relief. Pt. Is expressing some rib pain due to chronic coughing episodes. Protocol Used: Cough (Adult) Protocol-Based Disposition: Go to Office or Video Visit Now- appt. Scheduled for 09/17/24 at 1130am. Video visit offer not recorded Positive Triage Questions: * Mild difficulty breathing (e.g., minimal/no SOB at rest, SOB with walking, pulse < 100) and still present when not coughing * Severe coughing spells (e.g., whooping sound after coughing, vomiting after coughing) * Known COPD or other severe lung disease (i.e., bronchiectasis, cystic fibrosis, lung surgery) andsymptoms getting worse (i.e., increased sputum purulence or amount, increased breathing difficulty)< br /> * All higher-acuity triage questions were negative Care Advice Discussed: * Cough Medicines * Coughing Spells * Prevent Dehydration * Avoid Tobacco Smoke * Humidifier * Telephone Encounter - Rashad Lionel - 09/16/2024 1:32 PM EST Symptom: Cough Outcome: Schedule an urgent appointment (within 1 hour) or talk to a nurse or provider soon Reason: Wheezing (high-pitched whistling sound) The caller accepted this outcome. Contact pt at [phone] documented in this encounter Plan of Treatment Upcoming Encounters Date Type Department Care Team ([facility] st Contact Info) Description 11/17/2024 1:30 PM EDT Office Visit [facility] [address] [place] [address] Marcy Pat MD [address] [place] [phone] documented as of this encounter Visit Diagnoses Not on filedocumented in this encounter Additional Health Concerns Assessment Noted Time PHQ-9 Depression Total Score: 3 03/06/20 23 10:37 AM EDT documented as of this encounter Care Teams Time Clock Mechanic Relationship Specialty Start Date End Date Marcy Pat MD [address] [place] [phone] PCP - General Internal Medicine 03/06/23 documented as of this encounter
== END 2024-09-17 13:00 | disposition home or self-care (01) ==
LOC: HO.HHCX 12:59
PROVIDERS: Visit Provider Family Medicine
DX: J44.1 Chronic obstructive pulmonary disease with (acute) exacerbation (principal)
CPT/HCPCS: 71046

== ENCOUNTER → 2024-09-17 13:00 | Outpatient (BNV) | payer MEDICARE, MEDICAID, SELFPAY | PROVIDERS: Visit Provider Radiology Diagnostic Radiology | DX: R05.9 Cough, unspecified (principal) | CPT/HCPCS: 71046 ==